=== PATIENT | male | born 1950 | race Two or more races ===

== ENCOUNTER 2022-07-09 12:38 | Emergency (ER) | payer MEDICARE, MEDICAID, SELFPAY ==
--- NOTE | ~2022-07-09 | XR_ITS ---
EXAMINATION: XR CHEST CLINICAL INFORMATION: Cough with chest pain COMPARISON: None TECHNIQUE: 2 views of the chest were obtained. FINDINGS: No significant abnormality is noted involving the heart, lungs, mediastinum, bony thorax or soft tissues. Prominent left pericardial fat pad. Lingular scar. XR/XR chest 2V IMPRESSION: No acute disease.
--- NOTE | 2022-07-09 13:28 | ED_ITS ---
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 Patient using family) <CHAPARRITA Dewey Last Filed: 07/09/22 16:27> History of Present Illness HPI narrative: 72-year-old male with a history of insulin-dependent diabetes, hypertension, asthma who presents with 1 week of cough which is congested, chest discomfort with coughing, headache, sore throat. Patient here with daughter in- law who was flu positive. Patient denies any shortness of breath, leg swelling or leg pain, fevers or chills. Patient has had to use albuterol inhaler intermittently. <CHAPARRITA Dewey Last Filed: 07/09/22 16:27> Related Data Home medications: Previous Rx's Medication Instructions Recorded azithromycin 250 mg tablet See Rx Instructions PO .COMPLEX #6 07/09/22 tabs benzonatate 200 mg capsule 200 mg PO TID PRN cough #15 caps 07/09/22 <SALOME Grider - Last Filed: 07/09/22 13:32> Allergies/adverse reactions: Allergies Allergy/AdvReac Type Severity Reaction Status Date / Time No Known Allergies Allergy Verified 07/09/22 13:28 <SALOME Grider Last Filed: 07/09/22 13:32> Review of Systems Review of Systems: Yes all other systems are reviewed and are negative <CHAPARRITA Dewey Last Filed: 07/09/22 16:27> Constitutional: Constitutional: Reports no additional constitutional complaints, Denies body ache(s), Denies chills, Denies fever(s), Reports headache(s) and Denies weakness <Aura Naylor NP - Last Filed: 07/09/22 16:27> Eyes: Eyes: Reports no additional eye complaints and Denies change in vision <Aura Naylor NP - Last Filed: 07/09/22 16:27> ENT: Reports system reviewed and no additional complaints, except as documented, Denies dizziness, Reports headache(s), Denies nasal congestion, Denies nasal discharge and Denies neck pain <Aura Naylor NP - Last Filed: 07/09/22 16:27> Cardiovascular: Cardiovascular: Reports no additional cardiovascular complaints, Reports chest pain (With coughing only), Denies leg edema and Denies dyspnea <Aura Naylor NP - Last Filed: 07/09/22 16:27> Respiratory: Respiratory: Reports no additional respiratory complaints, Reports cough and Denies dyspnea <Aura Naylor NP - Last Filed: 07/09/22 16:27> Gastrointestinal: Gastrointestinal: Reports no additional gastrointestinal complaints, Denies abdominal pain, Denies diarrhea, Denies nausea and Denies vomiting <Aura Naylor NP - Last Filed: 07/09/22 16:27> Genitourinary: Genitourinary: Denies urinary incontinence <Aura Naylor NP - Last Filed: 07/09/22 16:27> Musculoskeletal: Musculoskeletal: Reports no additional musculoskeletal complaints, Denies back pain, Denies arthralgias, Denies joint swelling, Denies neck pain, Denies numbness and Denies tingling <Aura Naylor NP - Last Filed: 07/09/22 16:27> Integumentary/Breasts: Skin/Breast: Reports system reviewed and no additional complaints, except as docu and Denies rash <Aura Naylor NP - Last Filed: 07/09/22 16:27> Neurologic: Reports system reviewed and no additional complaints, except as documented, Denies dizziness, Reports headache(s), Denies numbness, Denies tingling and Denies weakness <Aura Naylor NP - Last Filed: 07/09/22 16:27> PMFSH Past Medical History Attestation statement: The following information was validated with the patient. <Aura Naylor NP - Last Filed: 07/09/22 16:27> Source: old records reviewed and nursing notes reviewed <Aura Naylor NP - Last Filed: 07/09/22 16:27> Social History Social History: Social History Advance Directives: No Advance Directives Information Provided: No <SALOME Grider - Last Filed: 07/09/22 13:32> Physical Exam ED Vital Signs: Vital Signs - 24 hr 07/09/22 13:29 Temperature 98 F Pulse Rate 70 Respiratory Rate 18 Blood Pressure 120/74 Pulse Oximetry 98 Oxygen Delivery Method Room Air BMI result Body Mass Index 26.6 <SALOME Grider - Last Filed: 07/09/22 13:32> Vital Signs - 24 hr 07/09/22 13:29 Temperature 98 F Pulse Rate 70 Respiratory Rate 18 Blood Pressure 120/74 Pulse Oximetry 98 Oxygen Delivery Method Room Air BMI result Body Mass Index 26.6 <Aura Naylor NP - Last Filed: 07/09/22 16:27> Const General: cooperative, healthy appearing, comfortable and no acute distress <Aura Naylor NP - Last Filed: 07/09/22 16:27> Orientation/consciousness: patient oriented x3 <Aura Naylor NP - Last Filed: 07/09/22 16:27> HENMT Head: Yes normal to inspection <Aura Naylor NP - Last Filed: 07/09/22 16:27> Ears: hearing grossly normal bilaterally and TM's normal bilaterally <Aura Naylor NP - Last Filed: 07/09/22 16:27> Throat: Yes posterior oropharynx normal, Yes tonsils normal and Yes uvula midline <Aura Naylor NP - Last Filed: 07/09/22 16:27> Eyes General: appearance normal, both eyes and all related structures <Aura Naylor NP - Last Filed: 07/09/22 16:27> Pupils: Equal, round and reactive pupils present <Aura Naylor NP - Last Filed: 07/09/22 16:27> Neck Neck: Yes normal visual inspection, Yes full ROM, Yes no lymphadenopathy and Yes no meningeal signs <Aura Naylor NP - Last Filed: 07/09/22 16:27> Chest Chest palpation & inspection: normal inspection of the chest <Aura Naylor NP - Last Filed: 07/09/22 16:27> Resp Other: Mild exp wheezing <Aura Naylor NP - Last Filed: 07/09/22 16:27> Effort & Inspection: normal respiratory effort <Aura Naylor NP - Last Filed: 07/09/22 16:27> Cardio Rate: regular rate <Aura Naylor NP - Last Filed: 07/09/22 16:27> Rhythm: regular rhythm <Aura Naylor NP - Last Filed: 07/09/22 16:27> Peripheral pulses: Peripheral pulses 2+ throughout <Aura Naylor NP - Last Filed: 07/09/22 16:27> GI Inspection: Yes normal to inspection <Aura Naylor NP - Last Filed: 07/09/22 16:27> Palpation (GI): Soft to palpation and nontender <Aura Naylor NP - Last Filed: 07/09/22 16:27> General: Yes no CVA tenderness <Aura Naylor NP - Last Filed: 07/09/22 16:27> Back/Spine/Pelvis Back: no CVA tenderness <Aura Naylro NP - Last Filed: 07/09/22 16:27> Thoracic/Lumbar Spine: thoracic and lumbar spine normal to inspection <Aura Naylor NP - Last Filed: 07/09/22 16:27> Skin General skin exam: no rashes or lesions noted <Aura Naylor NP - Last Filed: 07/09/22 16:27> Neuro General: patient oriented x3, moves all extremities and no meningeal signs <Aura Naylor NP - Last Filed: 07/09/22 16:27> Cranial nerves: Yes Equal, round and reactive pupils present <Aura Nalyor NP - Last Filed: 07/09/22 16:27> Cognition (Neuro): normal cognition <Aura Naylor NP - Last Filed: 07/09/22 16:27> Gait exam (Neuro): Normal gait present <Aura Naylor NP - Last Filed: 07/09/22 16:27> Extrem General: Yes normal to inspection, Yes no pedal edema and Yes no calf tenderness <Aura Naylor NP - Last Filed: 07/09/22 16:27> Course Course Course Narrative: RME-13:30PM - 72yoM with URI symptoms for the past week worse today chills, fatigue, malaise, cough, sputum production, Chest congestion, nausea/vomiting/diarrhea. Daughter in-law has similar symptoms she is also checking in. He denies any other sick contacts that he is aware of. Recently moved from [place] to stay here permanently 1 month ago. Plan: Patient is stable. Chest x-ray, COVID/RSV/flu swab ordered at this time. <SALOME Grider - Last Filed: 07/09/22 13:32> Reevaluation(s) Reevaluation #1: Flu screen is positive for influenza A. Tamiflu not given as a would not likely be helpful at this point. Patient with some mild expiratory wheezing with chest congestion. Consider bronchitis. Chest x-ray negative for pneumonia. Patient will be treated with course of antibiotics. Reviewed worrisome signs and symptoms of when to return to the emergency room. Comfortable plan for discharge home. <Aura Naylor NP - Last Filed: 07/09/22 16:27> Medical Decision Making Medical Decision Making MDM Narrative: 72-year-old male here with 1 week of chest discomfort with coughing, chest congestion and cough as well as headache. Patient with exposure to the flu. Vitals stable. Lungs with mild expiratory wheezing. Will check chest x-ray, testing for flu, COVID, RSV <Aura Naylor NP - Last Filed: 07/09/22 16:27> Differential Diagnosis Differential Diagnoses: The differential diagnosis associated with the presentation includes <Aura Naylor NP - Last Filed: 07/09/22 16:27> influenza, OM, PNA <Aura Naylor NP - Last Filed: 07/09/22 16:27> Lab Data MDM Lab Attestation statement: I reviewed the patient's lab results. <Aura Naylor NP - Last Filed: 07/09/22 16:27> Labs: Lab Results 07/09/22 Range/Units 13:52 Influenza Type A (PCR) POSITIVE A (Negative) Influenza Type B (PCR) NEGATIVE (Negative) RSV RNA Qual (PCR) NEGATIVE (Negative) SARS-CoV-2 RNA (RT-PCR) NEGATIVE (Negative) <SALOME Grider - Last Filed: 07/09/22 13:32> Lab Results 07/09/22 Range/Units 13:52 Influenza Type A (PCR) POSITIVE A (Negative) Influenza Type B (PCR) NEGATIVE (Negative) RSV RNA Qual (PCR) NEGATIVE (Negative) SARS-CoV-2 RNA (RT-PCR) NEGATIVE (Negative) <Aura Naylor NP - Last Filed: 07/09/22 16:27> Independent Interpretation I performed an independent interpretation of an: Plain X-Ray (I independently reviewed the x-ray which shows no pneumonia) <Aura Naylor NP - Last Filed: 07/09/22 16:27> Radiology Impression Discussion of test interpretation with radiology: I have reviewed the radiologist's reading. <Aura Naylor NP - Last Filed: 07/09/22 16:27> Radiologist Impression: FINDINGS: No significant abnormality is noted involving the heart, lungs, mediastinum, bony thorax or soft tissues. Prominent left pericardial fat pad. Lingular scar. XR/XR chest 2V IMPRESSION: No acute disease. <Aura Naylor NP - Last Filed: 07/09/22 16:27> Independent Historian Clinical information obtained from an independent historian. History obtained from or confirmed by: Other (Son-who is the patient's wire frame lamp shade maker. Declined wire frame lamp shade maker services) <Aura Naylor NP - Last Filed: 07/09/22 16:27> Prescription Management I considered prescription management with: Antiviral <Aura Naylor NP - Last Filed: 07/09/22 16:27> Tamiflu not recommended due to length of symptoms of greater than 7 days. I discussed with the patient and his family that it would likely not be helpful at this point in time <Aura Naylor NP - Last Filed: 07/09/22 16:27> Discharge Plan Discharge Clinical Impression: Influenza, Bronchitis <SALOME Grider - Last Filed: 07/09/22 13:32> Patient Disposition: Home, Self-Care <SALOME Grider - Last Filed: 07/09/22 13:32> Instructions: Influenza (ED), Acute Bronchitis (ED) <SALOME Grider - Last Filed: 07/09/22 13:32> Additional Instructions: Testing for flu is positive Testing for COVID and RSV are negative Increase fluids,rest Alternate Motrin, Tylenol for pain or fever La prueba de gripe es positiva Las pruebas para COVID y RSV son negativas Aumentar l?quidos, descansar Motrin alternativo, Tylenol para el dolor o la fiebre <SALOME Grider - Last Filed: 07/09/22 13:32> Prescriptions: New azithromycin 250 mg tablet See Rx Instructions .ROUTE .COMPLEX Qty: 6 0RF Rx Instructions: For 250 mg dose pack: take 500 mg today (day 1), then 250 mg for 4 days (days 2-5) benzonatate 200 mg capsule 200 mg PO TID PRN (Reason: cough) Qty: 15 0RF <SALOME Grider - Last Filed: 07/09/22 13:32> Referrals: Physician,None [Primary Care Provider] - <SALOME Grider - Last Filed: 07/09/22 13:32> Interventions: ED Discharge Assessment Last Done: 07/09/22 16:12 <SALOME Grider - Last Filed: 07/09/22 13:32> Discharge Date/Time: 07/09/22 16:13 <SALOME Grider - Last Filed: 07/09/22 13:32> Print Language: Barbadian <SALOME Grider - Last Filed: 07/09/22 13:32>
[2022-07-09 13:29] VITALS: BP 120/74; PULSE 70; RESP 18; TEMP 36.6; O2SAT 98; BMI 26.6
[2022-07-09 14:45] LABS: Influenza A PCR POSITIVE (Negative); Influenza B PCR NEGATIVE (Negative); Resp Syncy Virus RNA Qual PCR NEGATIVE (Negative); SARS COV2 PCR INHOUSE NEGATIVE (Negative)
== END 2022-07-09 16:13 | disposition home or self-care (01) ==
PROVIDERS: Physician Assistant Medical; Emergency Provider Internal Medicine
DX: J10.1 Influenza due to other identified influenza virus with other respiratory manifestations (principal); J20.8 Acute bronchitis due to other specified organisms; Z20.822 Contact with and (suspected) exposure to COVID-19
CPT/HCPCS: 0241U; 71046; 99282; 99283

== ENCOUNTER 2022-08-28 12:35 | Outpatient (REF) | payer MEDICARE, SELFPAY ==
--- NOTE | ~2022-08-28 | XR_ITS ---
EXAMINATION: XR LUMBOSACRAL SPINE CLINICAL INFORMATION: Chronic pain COMPARISON: None TECHNIQUE: Three views of the lumbosacral spine. FINDINGS: No fracture or subluxation. Vertebral body height and alignment maintained. Disc spaces are maintained. Small endplate osteophytes are seen throughout. The sacroiliac joints are symmetric. The visualized sacrum is intact. Normal bowel gas pattern. XR/XR lumbar spine 2-3V IMPRESSION: Mild degenerative changes throughout the lumbar spine.
--- NOTE | ~2022-08-28 | XR_ITS ---
EXAMINATION: XR HIP, RIGHT CLINICAL INFORMATION: Chronic hip pain COMPARISON: None TECHNIQUE: Two views of the right hip. FINDINGS: No fracture or dislocation. The right hip is well aligned. The joint space is maintained. Mild sclerosis along the acetabular margin. The right hemipelvis is intact. The right sacroiliac joint is well aligned. The pubic symphysis is intact. XR/XR hip RT min 2V IMPRESSION: Mild degenerative change of the right hip.
== END 2022-08-28 12:36 | disposition home or self-care (01) ==
LOC: HO.XRAY 12:35
PROVIDERS: PCP Registered Nurse; Visit Provider Registered Nurse
DX: M25.551 Pain in right hip (principal); M54.9 Dorsalgia, unspecified; G89.29 Other chronic pain
CPT/HCPCS: 72100; 73502

== ENCOUNTER 2022-10-12 08:31 | Outpatient (REF) | payer OTHER, SELFPAY ==
--- NOTE | ~2022-10-12 | XR_ITS ---
EXAMINATION: XR PELVIS CLINICAL INFORMATION: Pain COMPARISON: Hip radiographs 08/28/2022 TECHNIQUE: AP view of the pelvis. FINDINGS: Mild degenerative changes of the bilateral hips with degenerative spurring. Atherosclerotic vascular calcification. Sacroiliac joint spaces are maintained. No acute fracture or dislocation appreciated on this limited single view however if clinical concern recommend repeat radiographs with multiple views. XR/XR pelvis 1-2V IMPRESSION: 1. Mild degenerative changes of the bilateral hips.
== END 2022-10-12 08:32 | disposition home or self-care (01) ==
LOC: HO.HOSX 08:31
PROVIDERS: Visit Provider Physician Assistant
DX: M54.16 Radiculopathy, lumbar region (principal); M25.551 Pain in right hip
CPT/HCPCS: 72170; 99202

== ENCOUNTER 2022-11-12 11:38 | Outpatient (REF) | payer OTHER, MEDICAID, SELFPAY ==
[2022-11-12 11:53] LABS: MANUAL DIFF FLAG NO
[2022-11-12 12:45] LABS: Basophils Absolute Auto 0.1 X10*3/uL (0.0-0.2); Basophils Percent Auto 0.7 % (0-2); Eosinophils Absolute Auto 1.5 X10*3/uL (0.0-0.4); Eosinophils Percent Auto 15.8 % (0-4); Hemoglobin 15.9 g/dl (14.0-18.0); Imm Gran Abs Auto 0.02 X10*3/uL (0.00-0.03); Imm Gran Pct Auto 0.2 % (0.0-0.4); Lymphocytes Absolute Auto 3.3 X10*3/uL (1.2-4.9); Lymphocytes Percent Auto 34.6 % (20-40); Mean Corpuscular HGB Conc 33.8 g/dl (31.0-36.0); Mean Corpuscular Volume 91.6 fL (80.0-98.0); Mean Platelet Volume 10.9 fL (9.4-12.4); Monocytes Absolute Auto 0.6 X10*3/uL (0.1-1.2); Monocytes Percent Auto 6.5 % (2-11); Neutrophils Absolute Auto 4.1 x10*3/uL (2.0-8.3); Neutrophils Percent Auto 42.2 % (45-73); Platelet Count 228 X10*3/uL (160-400); Red Blood Count 5.13 X10*6/uL (4.60-5.80); Red Cell Distribution Width 13.5 % (11.0-16.0); White Blood Count 9.6 X10*3/uL (4.8-10.8)
[2022-11-12 13:28] LABS: Alanine Aminotransferase 82 U/L (0-40); Albumin Level 4.2 g/dL (3.5-5.0); Alkaline Phosphatase 74 U/L (39-117); Anion Gap 16 (12-20); Aspartate Amino Transferase 46 U/L (5-37); Bilirubin Direct 0.2 mg/dL (0.0-0.5); Bilirubin Total 0.8 mg/dL (0.0-1.0); Blood Urea Nitrogen 19 mg/dL (9-16); Calcium 9.8 mg/dL (8.4-10.2); Carbon Dioxide 26 mmol/L (22-29); Chloride 103 mmol/L (96-108); Estimated Glomerular Filt Rate > 60; Glucose Random 250 mg/dL (60-115); Potassium 4.8 mmol/L (3.3-5.1); Sodium 140 mmol/L (135-145); Total Protein 7.4 g/dL (6.5-8.0)
[2022-11-12 13:45] LABS: Folate 13.6 ng/mL (> or = 4.0); T4 Thyroxine 8.7 ug/dL (4.5-12.0); Thyroid Stimulating Hormone 2.22 uIU/mL (0.32-4.0); Vitamin B12 381 pg/mL (200-900)
== END 2022-11-12 11:39 | disposition home or self-care (01) ==
LOC: HO.LAB 11:38
PROVIDERS: Visit Provider Psychiatry & Neurology Neurology
DX: I67.9 Cerebrovascular disease, unspecified (principal); E11.9 Type 2 diabetes mellitus without complications; F03.90 Unspecified dementia, unspecified severity, without behavioral disturbance, psychotic disturbance, mood disturbance, and anxiety
CPT/HCPCS: 36415; 80048; 80076; 82607; 82746; 84436; 84443; 85025

== ENCOUNTER 2023-01-22 14:45 | Outpatient (REF) | payer OTHER, SELFPAY ==
--- NOTE | ~2023-01-22 | CT_ITS ---
EXAMINATION: CT HEAD WITHOUT CONTRAST CLINICAL INFORMATION: Cerebral microvascular disease. COMPARISON: Comparison dictation TECHNIQUE: Multidetector CT imaging of the head was obtained without the use of intravenous contrast. Coronal and sagittal reformatted images were generated at the technologist workstation. This CT examination was performed using dose optimization techniques as appropriate, variously including the following: *Automated exposure control *Adjustment of mA and/or kV according to patient size (this includes techniques or standardized protocols for targeted exams where dose is matched to indication/reason for exam; i.e. extremities or head) *Use of iterative reconstruction technique DLP: 792 0.00 mGy-cm. FINDINGS: There is no evidence of acute intracranial hemorrhage or territorial infarction. No abnormal mass-effect or midline shift is seen. Norton to white matter differentiation is well preserved. No extra-axial fluid collections are identified. There is mild commensurate prominence of the ventricles and sulci consistent with diffuse volume loss. There are areas of low-attenuation in the periventricular and subcortical white matter, most consistent with chronic microvascular ischemic changes. There are areas of low-attenuation in the basal ganglia bilaterally, consistent with chronic lacunar infarcts. There are no acute osseous or soft tissue abnormalities. The mastoids air cells are poorly pneumatized, but appear well-aerated. The other paranasal sinuses appear clear. CT/CT head/brain wo IV con IMPRESSION: 1. There are no acute bleeds or territorial infarcts. No masses are demonstrated. 2. There are chronic microvascular ischemic changes and lacunar infarcts. There is diffuse volume loss.
--- NOTE | ~2023-01-22 | US_ITS ---
EXAMINATION: US THYROID CLINICAL INFORMATION: Multinodular thyroid. Patient states thyroid biopsy in [place] 4 years ago however, we have no information to confirm this. Unknown surgical history. COMPARISON: None available. TECHNIQUE: Linear transducer grayscale and color Doppler examination with attention to the region of the thyroid. FINDINGS: SIZE: Measurements of the thyroid lobes and nodules are given in sagittal, anteroposterior and transverse dimensions respectively. Right Thyroid Lobe: 4.7 x 2.2 x 1.9 cm, volume 10.2 mL. Parenchyma: The gland echotexture is heterogeneous. Thyroid vascularity is normal. Left Thyroid Lobe: Discrete left thyroid tissue is not clearly visualized. Correlation with clinical and surgical history recommended to determine if patient had surgical removal. Isthmus: 0.3 cm in maximum AP dimension. No focal thyroid nodule is seen. NODES: No lymphadenopathy is seen in the tissue surrounding the thyroid gland. ADDITIONAL FINDINGS: A 0.5 x 0.5 x 0.4 cm echogenic rounded soft tissue mass is seen in the inferior aspect of the left thyroid bed of indeterminate etiology. US/US thyroid IMPRESSION: 1. Heterogeneous right thyroid lobe. No suspicious right thyroid nodule. 2. Discrete left thyroid tissue is not clearly visualized. Correlation with clinical and surgical history recommended. 3. A 0.5 cm echogenic rounded soft tissue mass is seen in the inferior aspect of the left thyroid bed of indeterminate etiology. Direct correlation with prior images is recommended and if prior images are provided, an addendum will be dictated. In the absence of prior images, CT scan or MRI should be considered for further evaluation. Correlation with clinical and surgical history recommended to determine further management. ACR TI-RADS RECOMMENDATION REFERENCE: Ultrasound-guided fine-needle aspiration, followup ultrasound, no further follow up. * TR1 (0 point) and TR2 (2 points): No FNA or follow up. * TR3 (3 points): FNA if more than or equal to 2.5 cm in maximum dimension, followup ultrasound in 1, 3 and 5 years if 1.5 to 2.4 cm in maximum dimension. * TR4 (4-6 points): FNA if more than or equal to 1.5 cm in maximum dimension, followup ultrasound in 1, 2, 3 and 5 years if 1 to 1.4 cm in maximum dimension. * TR5 (more than or equal to 7 points): FNA if more than or equal to 1 cm in maximum dimension, followup ultrasound every year for 5 years if 0.5 to 0.9 cm in maximum dimension. * TR3, TR4 or TR5 nodules that are below the size threshold for followup receive no follow up.
== END 2023-01-22 14:46 | disposition home or self-care (01) ==
LOC: HO.CT 14:45
PROVIDERS: PCP Registered Nurse; Visit Provider Psychiatry & Neurology Neurology
DX: E04.2 Nontoxic multinodular goiter (principal); I67.9 Cerebrovascular disease, unspecified
CPT/HCPCS: 70450; 76536